=== PATIENT | male | born 1985 | race Caucasian/White ===

== ENCOUNTER 2016-03-22 11:37 | Emergency (ER) | payer MEDICAID, OTHER ==
[~2016-03-22] VITALS: Ht 182.9 cm; Wt 101.0 kg
[~2016-03-22 11:37] MED LIST: BACT800T5 PO; CEPH500T PO
[2016-03-22 11:39] VITALS: BP 140/82; PULSE 89; RESP 16; TEMP 99.2; O2SAT 100
--- NOTE | 2016-03-22 12:03 | PD ---
HPI Chief Complaint: Pain: Acute or Chronic Time Seen by Provider: 12:00 Travel History International Travel<30 days: No Contact w/Intl Traveler<30days: No Traveled to known affect area: No History of Present Illness HPI Patient comes back to the emergency department complaining of continued left fifth finger bump has been ongoing for a while now. Patient states he was seen in the emergency department for this previously and was placed on antibiotics but never followed up with hand surgeon as previously instructed. Patient states after being on antibiotics for little while the bump went down and he was able to cut it himself getting large amount of white discharge. Patient states since that occasionally it swells and is usually able to squeeze purulent drainage out of it. Over the past couple days he has not been able to squeeze anything it is becoming more painful. Patient states bump is a burning sensation without radiation. Patient states he is able to move his finger however is unable to fully make a fist with his fifth finger on the left hand secondary to increased pressure sensation. Denies any fevers with this. Denies any known injury. PFSH Past Medical History Diminished Hearing: No Immunizations Current: Yes Social History Alcohol Use: No (DENIES) Tobacco Use: Yes (1PPD) Substance Use: No Allergies-Medications (Allergen,Severity, Reaction): Coded Allergies: No Known Allergies (Verified , 03/22/16) Reported Meds & Prescriptions Reported Meds & Active Scripts Active Diclofenac Sodium DR (Diclofenac Sodium) 75 Mg Tabdr 75 Mg PO Q12HR PRN Bactrim DS (Sulfamethoxazole-Trimethoprim) 800-160 Mg Tab 1 Tab PO BID Review of Systems Except as stated in HPI: all other systems reviewed are Neg Physical Exam Narrative GENERAL: Well-developed, overly nourished, in no acute distress, and non-ill appearing. SKIN: Warm and dry. Small tender bump noted on the palmar surface left pinky finger is mildly erythematous, afebrile, and without crepitus, fluctuance, or drainage. Patient is neurovascularly intact distally. Has full range of motion of the fifth left finger. There is no streaking. HEAD: Atraumatic. Normocephalic. EYES: Pupils equal and round. EOMI. No scleral icterus. No injection or drainage. ENT: No nasal bleeding or discharge. Mucous membranes pink and moist. NECK: Trachea midline. Supple. No nuclear rigidity. CARDIOVASCULAR: Capillary refill less than 2 seconds. RESPIRATORY: No accessory muscle use. No respiratory distress. MUSCULOSKELETAL: No obvious deformities. No clubbing. No cyanosis. No edema. Full range of motion. NEUROLOGICAL: Awake and alert. No obvious cranial nerve deficits. Motor grossly within normal limits. Normal speech. PSYCHIATRIC: Appropriate mood and affect; insight and judgment normal. Data Data Last Documented VS Vital Signs Date Time Temp Pulse Resp B/P Pulse Ox O2 Delivery O2 Flow Rate FiO2 03/22/16 11:39 99.2 89 16 140/82 100 Orders Finger (Ibu5cwd) (03/22/16 ) MDM Medical Decision Making Medical Screen Exam Complete: Yes Emergency Medical Condition: Yes Differential Diagnosis Abscess, cellulitis, osteomyelitis, other Narrative Course The patient has mild cellulitis. There is no evidence of necrotizing fasciitis at this time. There is no evidence of abscess. There is no evidence of local joint space involvement. There is no evidence of deep venous thrombosis. The patient will be discharged on antibiotics. The patient was given signs and symptoms warnings for worsening infection, such as spreading of redness, increasing pain, and/or swelling, associated heat, or fever and instructed to return immediately if these signs or symptoms worsen. The patient is to follow up with physician in 2 days for recheck or return here in 2 days for recheck if unable to establish outpatient follow up. Sooner if worsens or as needed. The patient agrees with plan. Patient in no obvious distress upon re-evaluation. All pertinent Radiology result(s) discussed with patient/family. Patient was asked if they wanted to speak to my attending, which the patient did not wish to do at this time. Any questions/concerns in reference to patient diagnosis/condition discussed and clarified prior to patient's discharge. Reinforced sheer importance of close follow up with hand surgeon. Instructed patient to return to ED immediately, if symptoms return/worsen. Pt showed understanding of above instructions. Further instructions and recommendations were detailed in discharge paperwork. Pt ambulated without difficulty out of ED at discharge. Diagnosis Primary Impression: Cellulitis of finger of left hand Referrals: Myrtle Duarte MD Patient Instructions: Cellulitis (ED), General Instructions Departure Forms: Work Release Enter return to work date: Mar 24, 2016 Special Instructions: Keep Left pinky finger dry and clean as possible. Additional Instructions: Follow-up with Dr. Duarte or other hand surgeon this week for reevaluation. Take all medication as prescribed. Return to the emergency department if symptoms get worse. Med/Other Pt SpecificInfo: Prescription(s) given Scripts Diclofenac Sodium DR 75 Mg Tabdr75 Mg PO Q12HR PRN (PAIN SCALE 1 TO 10) #14 TAB Ref 0 Prov:Rakesh Smart MD 03/22/16 Sulfamethoxazole-Trimethoprim (Bactrim DS)800-160 Mg Tab1 Tab PO BID #20 TAB Ref 0 Prov:Rakesh Smart MD 03/22/16 Disposition: 01 DISCHARGE HOME Condition: Stable Tulio Hemphill Mar 22, 2016 12:03
--- NOTE | 2016-03-22 12:20 | RADHPO ---
EXAM DATE/TIME: 03/22/2016 12:00 [facility] COMPARISON: No previous studies available for comparison. INDICATIONS : Cyst/growth on left fifth digit MEDICAL HISTORY : None. SURGICAL HISTORY : Cyst removal from left fifth digit finger ENCOUNTER: Initial ACUITY: 2 days PAIN SCORE: 7/10 LOCATION: Left anterior fifth digit FINDINGS: Examination of the fifth digit of the left hand demonstrates no evidence of fracture or dislocation. No radiopaque foreign bodies are seen. The soft tissues are intact. CONCLUSION: 1. Zack Cavazos MD on March 22, 2016 at 12:18 Board Certified Radiologist. This report was verified electronically.
[2016-03-22] MEDS ORDERED: BACT800T5 PO (12:41)
[2016-03-22] MEDS ORDERED: DICL75TA PO (12:41)
== END 2016-03-22 12:51 | disposition home or self-care (01) ==
LOC: PHEFT 11:37
DX: L03.011 Cellulitis of right finger (principal); F17.210 Nicotine dependence, cigarettes, uncomplicated
CPT/HCPCS: 73140; 99283

== ENCOUNTER 2016-10-27 15:36 | Emergency (ER) | payer SELFPAY ==
[~2016-10-27] VITALS: Ht 182.9 cm; Wt 102.3 kg
[~2016-10-27 15:36] MED LIST changes: -CEPH500T PO; +DICL75TA PO
[2016-10-27 15:49] VITALS: BP 155/87; PULSE 77; RESP 18; TEMP 98.1; O2SAT 98
--- NOTE | 2016-10-28 18:36 | EKG ---
Date Performed: 10/27/2016 Time Performed: 15:46:37 PTAGE: 31 years EKG: Sinus rhythm NORMAL ECG Compared to prior tracing no significant change DOCTOR: Va Werner Interpretating Date/Time 10/28/2016 18:33:36
== END 2016-10-27 16:30 | disposition left against medical advice (07) ==
LOC: PHED 15:36
DX: R07.9 Chest pain, unspecified (principal)
CPT/HCPCS: 93005; 99281